=== PATIENT | female | born 1950 | race Caucasian/White ===

== ENCOUNTER 2016-11-24 11:53 | Emergency (ER) | payer MEDICARE ==
[~2016-11-24] VITALS: Ht 170.2 cm; Wt 85.0 kg
[2016-11-24 11:57] VITALS: BP 106/52; PULSE 85; RESP 27; TEMP 97.7; O2SAT 97
[2016-11-24] MEDS ORDERED: OMEP20TA PO (12:12)
[2016-11-24] MEDS ORDERED: LOSA50TA PO (12:12)
[2016-11-24] MEDS ORDERED: ATOR40TA16 PO (12:12)
[2016-11-24] MEDS ORDERED: AMLO5TAB2 PO (12:13)
[2016-11-24] MEDS ORDERED: SODIUM CHLORIDE 0.9% FLUSH 10 ML FLUSH IVF PRN (12:15)
--- NOTE | 2016-11-24 12:17 | PD ---
HPI Chief Complaint: Syncope/Near-Syncope Time Seen by Provider: 12:01 Travel History International Travel<30 days: No Contact w/Intl Traveler<30days: No Traveled to known affect area: No History of Present Illness HPI This is a 66-year-old female who presents to the emergency department with syncope. The patient reports that she was out fishing with her son and when she got in the heat she started to feel lightheaded and dizzy and passed out 3 or 4 times. Her son provides most history. He says this is happened many times before. He says she's had a full workup including an ultrasound of her neck which was unremarkable and they can never find a reason. He says it always happens when she goes in the heat and he thinks she gets a little bit anxious and she panicks when she gets in the heat and this contributes to her symptoms. The patient denies any chest pain, trouble breathing and denies any recent diarrhea, nausea or vomiting or dark stools. PFSH Past Medical History High Cholesterol: Yes Diminished Hearing: No GERD: Yes Hypertension: Yes Influenza Vaccination: Yes Past Surgical History Appendectomy: Yes Cholecystectomy: Yes Social History Alcohol Use: No Tobacco Use: Yes (04/01 PPD) Substance Use: No Allergies-Medications (Allergen,Severity, Reaction): Coded Allergies: No Known Allergies (Unverified , 11/24/16) Reported Meds & Prescriptions Reported Meds & Active Scripts Active Reported Amlodipine (Amlodipine Besylate) 5 Mg Tab 5 Mg PO DAILY Losartan (Losartan Potassium) 50 Mg Tab 50 Mg PO DAILY Atorvastatin (Atorvastatin Calcium) 40 Mg Tab 40 Mg PO HS Omeprazole 20 Mg Tab 20 Mg PO BID Review of Systems Except as stated in HPI: all other systems reviewed are Neg Physical Exam Narrative GENERAL: Uncomfortable appearing, moaning, pale SKIN: Focused skin assessment warm and dry. HEAD: Atraumatic. Normocephalic. EYES: Pupils equal and round. No injection or drainage. ENT: Moist mucous membranes NECK: Trachea midline. CARDIOVASCULAR: Regular rate and rhythm. No murmur appreciated. RESPIRATORY: Clear to auscultation. Breath sounds equal bilaterally. GASTROINTESTINAL: Abdomen soft, non-tender, nondistended. MUSCULOSKELETAL: No obvious deformities. NEUROLOGICAL: Awake and alert. No obvious cranial nerve deficits. Moving all extremities. PSYCHIATRIC: Appropriate mood and affect; insight and judgment normal. Data Data Last Documented VS Vital Signs Date Time Temp Pulse Resp B/P (MAP) Pulse Ox O2 Delivery O2 Flow Rate FiO2 11/24/16 14:21 51 16 119/50 (73) Room Air 11/24/16 11:57 97.7 97 Orders Orders Electrocardiogram (11/24/16 12:01) Complete Blood Count With Diff (11/24/16 12:01) Comprehensive Metabolic Panel (11/24/16 12:01) Troponin I (11/24/16 12:01) Urinalysis - C+S If Indicated (11/24/16 12:01) Ct Brain W/O Iv Contrast(Rout) (11/24/16 12:01) Ecg Monitoring (11/24/16 12:01) Iv Access Insert/Monitor (11/24/16 12:01) Oximetry (11/24/16 12:01) Sodium Chloride 0.9% Flush (Ns Flush) (11/24/16 12:15) Sodium Chlor 0.9% 1000 Ml Inj (Ns 1000 M (11/24/16 12:30) Sodium Chlor 0.9% 1000 Ml Inj (Ns 1000 M (11/24/16 13:00) Cath For Specimen (11/24/16 13:55) Labs Laboratory Tests Test 11/24/16 12:18 11/24/16 14:05 White Blood Count 7.8 TH/MM3 Red Blood Count 5.31 MIL/MM3 Hemoglobin 15.6 GM/DL Hematocrit 46.6 % Mean Corpuscular Volume 87.8 FL Mean Corpuscular Hemoglobin 29.4 PG Mean Corpuscular Hemoglobin Concent 33.5 % Red Cell Distribution Width 13.3 % Platelet Count 259 TH/MM3 Mean Platelet Volume 8.6 FL Neutrophils (%) (Auto) 58.2 % Lymphocytes (%) (Auto) 31.7 % Monocytes (%) (Auto) 7.8 % Eosinophils (%) (Auto) 1.5 % Basophils (%) (Auto) 0.8 % Neutrophils # (Auto) 4.6 TH/MM3 Lymphocytes # (Auto) 2.5 TH/MM3 Monocytes # (Auto) 0.6 TH/MM3 Eosinophils # (Auto) 0.1 TH/MM3 Basophils # (Auto) 0.1 TH/MM3 CBC Comment DIFF FINAL Differential Comment Blood Urea Nitrogen 16 MG/DL Creatinine 1.20 MG/DL Random Glucose 136 MG/DL Total Protein 7.1 GM/DL Albumin 3.5 GM/DL Calcium Level 8.9 MG/DL Alkaline Phosphatase 100 U/L Aspartate Amino Transf (AST/SGOT) 20 U/L Alanine Aminotransferase (ALT/SGPT) 35 U/L Total Bilirubin 0.4 MG/DL Sodium Level 142 MEQ/L Potassium Level 3.6 MEQ/L Chloride Level 108 MEQ/L Carbon Dioxide Level 22.5 MEQ/L Anion Gap 12 MEQ/L Estimat Glomerular Filtration Rate 45 ML/MIN Troponin I LESS THAN 0.02 NG/ML Urine Color YELLOW Urine Turbidity CLEAR Urine pH 6.0 Urine Specific [place] 1.011 Urine Protein TRACE mg/dL Urine Glucose (UA) NEG mg/dL Urine Ketones NEG mg/dL Urine Occult Blood NEG Urine Nitrite NEG Urine Bilirubin NEG Urine Urobilinogen LESS THAN 2.0 MG/DL Urine Leukocyte Esterase TRACE Urine RBC 1 /hpf Urine WBC 8 /hpf Urine Squamous Epithelial Cells <1 /hpf Urine Bacteria RARE /hpf Urine Hyaline Casts 4 /lpf Urine Mucus FEW /lpf Microscopic Urinalysis Comment CULT NOT INDICATED MDM Medical Decision Making Medical Screen Exam Complete: Yes Emergency Medical Condition: Yes Interpretation(s) afebrile, no tachycardia, tachypneic, normotensive hemoconcentration mild renal insufficiency troponin normal urinalysis: 8 wbcs, rare bacteria, trace LE Differential Diagnosis Dehydration, vasovagal syncope, TIA, intracranial hemorrhage, arrhythmia, myocardial infarction Narrative Course This is a 66-year-old female who presents to the emergency department having had an episode where she passed out in the heat. This is happened to her multiple times in the past. From what her son describes it sounds like she may be experiencing panic attacks. She was tachypneic on arrival in the emergency department. She evidently has had a full outpatient workup for syncope in the past. She is placed in a monitor and an IV was established. CT of the head was reassuring. She was given 2 L of IV fluid. Labs demonstrate some hemoconcentration and some mild renal insufficiency consistent with dehydration. She does have a mild urinary tract infection. I don't think she requires admission for syncope at this time. I think she can safely be followed up with her primary care physician as an outpatient and she feels much better and would like to go home. Diagnosis Primary Impression: Syncope Qualified Codes: R55 - Syncope and collapse Patient Instructions: General Instructions Additional Instructions: If you develop severe chest pain, shortness of breath, sweating, lightheadedness , dizziness or difficulty breathing return to the emergency department immediately. Followup with your primary care physician in 2-3 days if your symptoms are not resolved. Med/Other Pt SpecificInfo: Prescription(s) given Scripts Nitrofurantoin Monohydrate Macrocrystals (Macrobid) 100 Mg Cap 100 MG PO BID for Infection for 7 Days, CAP 0 Refills Prov: Alie Phillips MD 11/24/16 Disposition: 01 DISCHARGE HOME Condition: Stable Alie Phillips MD Nov 24, 2016 12:17
[2016-11-24] MEDS ORDERED: SODIUM CHLOR 0.9% 1000 ML INJ 1,000 ML IV ONE (12:30)
[2016-11-24 12:35] LABS: AUTOMATED NEUTROPHIL # 4.6 TH/MM3 (1.8-7.7); BASOPHIL # 0.1 TH/MM3 (0-0.2); BASOPHIL % 0.8 % (0.0-2.0); EOSINOPHIL # 0.1 TH/MM3 (0-0.4); EOSINOPHIL % 1.5 % (0.0-4.0); HEMATOCRIT 46.6 % (35.0-46.0); HEMO FLAGS DIFF FINAL; LYMPH % 31.7 % (9.0-44.0); LYMPHOCYTE # 2.5 TH/MM3 (1.0-4.8); MEAN CELL VOLUME 87.8 FL (80.0-100.0); MEAN CORPUSCULAR HEMOGLOBIN 29.4 PG (27.0-34.0); MEAN CORPUSCULAR HGB CONC 33.5 % (32.0-36.0); MONO % 7.8 % (0.0-8.0); NEUT % 58.2 % (16.0-70.0); PLATELET COUNT 259 TH/MM3 (150-450); RED BLOOD COUNT 5.31 MIL/MM3 (4.00-5.30); RED CELL DISTRIBUTION WIDTH 13.3 % (11.6-17.2); WHITE BLOOD COUNT 7.8 TH/MM3 (4.0-11.0)
[2016-11-24 12:52] LABS: ANION GAP 12 MEQ/L (5-15); AST (GOT) 20 U/L (15-37); BICARBONATE 22.5 MEQ/L (21.0-32.0); BLOOD UREA NITROGEN 16 MG/DL (7-18); CHLORIDE 108 MEQ/L (98-107); GLOMERULAR FILTRATION RATE 45 ML/MIN (>89); POTASSIUM 3.6 MEQ/L (3.5-5.1); SODIUM (NA) 142 MEQ/L (136-145)
--- NOTE | 2016-11-24 12:59 | RADRPT ---
EXAM DATE/TIME: 11/24/2016 12:50 [facility] COMPARISON: No previous studies available for comparison. INDICATIONS : Syncope, general weakness and nausea today. RADIATION DOSE: 33.89 CTDIvol (mGy) MEDICAL HISTORY : Hypertension. SURGICAL HISTORY : Cholecystectomy. Appendectomy. ENCOUNTER: Initial ACUITY: 1 day PAIN SCALE: 0/10 LOCATION: Bilateral head TECHNIQUE: Multiple contiguous axial images were obtained of the head. Using automated exposure control and adj ustment of the mA and/or kV according to patient size, radiation dose was kept as low as reasonably a chievable to obtain optimal diagnostic quality images. DICOM format image data is available electro nically for review and comparison. FINDINGS: CEREBRUM: The ventricles are normal for age. No evidence of midline shift, mass lesion, hemorrhage or acute in farction. No extra-axial fluid collections are seen. POSTERIOR FOSSA: The cerebellum and brainstem are intact. The 4th ventricle is midline. The cerebellopontine angle i s unremarkable. EXTRACRANIAL: The visualized portion of the orbits is intact. SKULL: The calvaria is intact. No evidence of skull fracture. CONCLUSION: Normal examination for a patient of this age. Prashanth Choi MD on November 24, 2016 at 12:57 Board Certified Radiologist. This report was verified electronically.
[2016-11-24 13:00] LABS: ALKALINE PHOSPHATASE 100 U/L (45-117); ALT (GPT) 35 U/L (10-53); TOTAL BILIRUBIN ADULT 0.4 MG/DL (0.2-1.0)
[2016-11-24] MEDS ORDERED: SODIUM CHLOR 0.9% 1000 ML INJ 1,000 ML IV SCH (13:00)
[2016-11-24 14:19] LABS: BACTERIA, URINE RARE /hpf; BLOOD, URINE NEG (NEG); COMMENT (UR) CULT NOT INDICATED; CULTURE IF INDICATED CULT NOT INDICATED; GLUCOSE,URINE NEG (NEG); HYALINE CAST, URINE 4 /lpf (RARE); KETONE, URINE NEG (NEG); MUCUS URINE FEW /lpf (OCC); NITRITE,URINE NEG (NEG); SQUAMOUS EPITHELIAL CELL URINE <1 /hpf (0-5); URINE COLOR YELLOW (YELLW/STRAW)
[2016-11-24 14:21] VITALS: BP 119/50; PULSE 51; RESP 16
[2016-11-24] MEDS ORDERED: MACR100C2 PO (14:37)
[2016-11-24 15:21] VITALS: BP 124/59; PULSE 70; RESP 18; O2SAT 98
--- NOTE | 2016-11-25 14:25 | EKG ---
Date Performed: 11/24/2016 Time Performed: 11:58:26 PTAGE: 66 years EKG: Sinus rhythm POSSIBLE LEFT ATRIAL ENLARGEMENT NONSPECIFIC T-WAVE ABNORMALITY BORDERLINE ECG NO PREVIOUS TRACING DOCTOR: Jb Maria Interpretating Date/Time 11/25/2016 14:24:11
== END 2016-11-24 15:22 | disposition home or self-care (01) ==
LOC: NEPC 11:53
DX: R55 Syncope and collapse (principal); I10 Essential (primary) hypertension; E78.00 Pure hypercholesterolemia, unspecified; K21.9 Gastro-esophageal reflux disease without esophagitis; F17.200 Nicotine dependence, unspecified, uncomplicated
CPT/HCPCS: 70450; 80053; 81001; 84484; 85025; 93005; 96360; 96361; 99285; J7030

== ENCOUNTER 2017-07-27 13:26 | Emergency (ER) | payer MEDICARE ==
[~2017-07-27] VITALS: Ht 170.2 cm; Wt 82.0 kg
[~2017-07-27 13:26] MED LIST: AMLO5TAB2 PO; ATOR40TA16 PO; LOSA50TA PO; MACR100C2 PO; OMEP20TA93 PO
[2017-07-27 13:32] VITALS: BP 118/54; PULSE 58; RESP 16; TEMP 95.1; O2SAT 96
[2017-07-27] MEDS ORDERED: SODIUM CHLOR 0.9% 1000 ML INJ 1,000 ML IV ONE (13:45)
--- NOTE | 2017-07-27 13:52 | RADRPT ---
EXAM DATE/TIME: 07/27/2017 13:40 [facility] COMPARISON: No previous studies available for comparison. INDICATIONS : Syncope MEDICAL HISTORY : Hypertension. SURGICAL HISTORY : Cholecystectomy. Appendectomy ENCOUNTER: Initial ACUITY: 1 day PAIN SCORE: 0/10 LOCATION: chest FINDINGS: Calcified granuloma left upper lobe. Borderline cardiomegaly. Lungs are clear. Osseous structures are intact. Aortic calcification. CONCLUSION: No acute disease. Karel Boateng MD on July 27, 2017 at 13:48 Board Certified Radiologist. This report was verified electronically.
--- NOTE | 2017-07-27 13:53 | PD ---
HPI Chief Complaint: Syncope/Near-Syncope Time Seen by Provider: 13:30 Travel History International Travel<30 days: No Contact w/Intl Traveler<30days: No Traveled to known affect area: No History of Present Illness HPI 67-year-old female that presents to the ED for evaluation of syncope. Patient has a history of syncopal episodes in the past. She states that today she had a syncopal episode but she does not remember what happened. Per patient she was doing laundry and she started feeling very sweaty and hot and then that is all she remembers. She does not know she hit her head. She denies any urinary or bowel movement issues. She was found to be diaphoretic and per ambulance report initially no blood pressure could be found. Patient was given 500 bolus of saline and the blood pressure came to the 70 systolic and she came back to more normal mentation. Currently she is able to answer some questions appropriately but she does appear to be somewhat somnolent. She denies taking any blood thinners. She denies any blurred vision or double vision. No pain of any kind. No history of heart disease. She does have a history of high blood pressure and took her blood pressure medications today. She states that she has been eating today. She states that she has had episodes like this in the past. Syncopal episode was not witnessed. She denies any history of seizures. She follows with Dr. Hoffman for primary care doctor. [facility] Past Medical History High Cholesterol: Yes Diminished Hearing: No GERD: Yes Hypertension: Yes Past Surgical History Appendectomy: Yes Cholecystectomy: Yes Social History Alcohol Use: No Tobacco Use: Yes (1/2 PPD) Substance Use: No Allergies-Medications (Allergen,Severity, Reaction): Coded Allergies: No Known Allergies (Unverified Adverse Reaction, Unknown, 07/27/17) Reported Meds & Prescriptions Reported Meds & Active Scripts Active Reported Amlodipine (Amlodipine Besylate) 5 Mg Tab 5 Mg PO DAILY Losartan (Losartan Potassium) 50 Mg Tab 50 Mg PO DAILY Atorvastatin (Atorvastatin Calcium) 40 Mg Tab 40 Mg PO HS Omeprazole 20 Mg Tab 20 Mg PO BID Review of Systems ROS Limitations: Altered Mental Status Except as stated in HPI: all other systems reviewed are Neg Physical Exam Exam Limitations: Altered Mental Status Narrative GENERAL: SKIN: Warm and dry. HEAD: Atraumatic. Normocephalic. EYES: Pupils equal and round. No scleral icterus. No injection or drainage. ENT: No nasal bleeding or discharge. Mucous membranes pink and moist. Tongue is midline. No uvula deviation. NECK: Trachea midline. No JVD. CARDIOVASCULAR: Regular rate and rhythm. No murmurs, S3, S4. RESPIRATORY: No accessory muscle use. Clear to auscultation. Breath sounds equal bilaterally. GASTROINTESTINAL: Abdomen soft, non-tender, nondistended. Hepatic and splenic margins not palpable. MUSCULOSKELETAL: Extremities without clubbing, cyanosis, or edema. No obvious deformities. Full range of motion of the upper and lower extremities bilaterally. 2+ pulses bilaterally. NEUROLOGICAL: Awake and alert. No obvious cranial nerve deficits. Motor grossly within normal limits. Five out of 5 muscle strength in the arms and legs. Normal speech. PSYCHIATRIC: Appropriate mood and affect; insight and judgment normal. Data Data Last Documented VS Vital Signs Date Time Temp Pulse Resp B/P (MAP) Pulse Ox O2 Delivery O2 Flow Rate FiO2 07/27/17 14:16 66 16 118/59 (78) 98 Room Air 07/27/17 13:32 95.1 Orders Orders Electrocardiogram (07/27/17 13:39) Complete Blood Count With Diff (07/27/17 13:39) Comprehensive Metabolic Panel (07/27/17 13:39) Ckmb (Isoenzyme) Profile (07/27/17 13:39) Troponin I (07/27/17 13:39) Prothrombin Time / Inr (Pt) (07/27/17 13:39) Act Partial Throm Time (Ptt) (07/27/17 13:39) Urinalysis - C+S If Indicated (07/27/17 13:39) Magnesium (Mg) (07/27/17 13:39) Thyroid Stimulating Hormone (07/27/17 13:39) Chest, Single Ap (07/27/17 13:39) Ct Brain W/O Iv Contrast(Rout) (07/27/17 13:39) Iv Access Insert/Monitor (07/27/17 13:39) Ecg Monitoring (07/27/17 13:39) Oximetry (07/27/17 13:39) Orthostatic Vital Signs (07/27/17 13:39) Sodium Chlor 0.9% 1000 Ml Inj (Ns 1000 M (07/27/17 13:45) CKMB (07/27/17 13:40) CKMB% (07/27/17 13:40) Ed Discharge Order (07/27/17 15:53) Labs Laboratory Tests Test 07/27/17 13:40 White Blood Count 9.2 TH/MM3 Red Blood Count 4.77 MIL/MM3 Hemoglobin 14.4 GM/DL Hematocrit 42.0 % Mean Corpuscular Volume 88.0 FL Mean Corpuscular Hemoglobin 30.2 PG Mean Corpuscular Hemoglobin Concent 34.3 % Red Cell Distribution Width 13.0 % Platelet Count 197 TH/MM3 Mean Platelet Volume 8.8 FL Neutrophils (%) (Auto) 87.3 % Lymphocytes (%) (Auto) 8.4 % Monocytes (%) (Auto) 3.7 % Eosinophils (%) (Auto) 0.2 % Basophils (%) (Auto) 0.4 % Neutrophils # (Auto) 8.1 TH/MM3 Lymphocytes # (Auto) 0.8 TH/MM3 Monocytes # (Auto) 0.3 TH/MM3 Eosinophils # (Auto) 0.0 TH/MM3 Basophils # (Auto) 0.0 TH/MM3 CBC Comment DIFF FINAL Differential Comment Prothrombin Time 10.9 SEC Prothromb Time International Ratio 1.1 RATIO Activated Partial Thromboplast Time 25.2 SEC Blood Urea Nitrogen 17 MG/DL Creatinine 1.19 MG/DL Random Glucose 115 MG/DL Total Protein 6.6 GM/DL Albumin 3.4 GM/DL Calcium Level 8.7 MG/DL Magnesium Level 2.0 MG/DL Alkaline Phosphatase 99 U/L Aspartate Amino Transf (AST/SGOT) 34 U/L Alanine Aminotransferase (ALT/SGPT) 44 U/L Total Bilirubin 0.5 MG/DL Sodium Level 142 MEQ/L Potassium Level 3.9 MEQ/L Chloride Level 109 MEQ/L Carbon Dioxide Level 24.0 MEQ/L Anion Gap 9 MEQ/L Estimat Glomerular Filtration Rate 45 ML/MIN Total Creatine Kinase 239 U/L Creatine Kinase MB 3.4 NG/ML Creatine Kinase MB % 1.4 % Troponin I LESS THAN 0.02 NG/ML Thyroid Stimulating Hormone 3rd Gen 3.580 uIU/ML MDM Medical Decision Making Medical Screen Exam Complete: Yes Emergency Medical Condition: Yes Medical Record Reviewed: Yes Interpretation(s) CBC & BMP Diagram 07/27/17 13:40 Total Protein 6.6, Albumin 3.4, Calcium Level 8.7, Magnesium Level 2.0, Alkaline Phosphatase 99, Aspartate Amino Transf (AST/SGOT) 34, Alanine Aminotransferase (ALT/SGPT) 44, Total Bilirubin 0.5 troponin and CKMB negative EKG shows sinus rhythm with no sign of acute ischemia or arrhythmia read by me and attending. Last Impressions Head CT 07/27/[id number] Signed Impressions: Service Date/Time: Thursday, July 27, 2017 14:13 - CONCLUSION: 1. Small foci of air within the soft tissues of the left scalp, left infraorbital region, left camera repairman space and around the cavernous sinus. The source of the air is not seen. Presumably there is a laceration. 2. No intracranial abnormality other than the small foci of air around the cavernous sinuses is seen. Santiago Potts MD Chest X-Ray [id number]/27/[id number] Signed Impressions: Service Date/Time: Thursday, July 27, 2017 13:40 - CONCLUSION: No acute disease. Karel Boateng MD Differential Diagnosis Syncope versus presyncope versus dehydration versus hypotension versus CVA versus ACS versus electron normality versus kidney failure versus cardiac syncope Narrative Course 67-year-old female that presents to the ED for evaluation of syncope. Patient was properly examined and was found to have signs and symptoms consistent appears to be syncope. Unclear telemetry at this time would likely from the hypotension. Labs and imaging order. Patient was given IV fluids here. Labs and imaging showed no sign of acute disease. patient was given fluids with improvement of BP and feels back to baseline. Desirious to go home. Patient has had multiple workups in the past for syncope and states that she will prefer to go home rather than do another workup. Per patient she has an appointment on Friday with her PCP and feels comfortable going with him. He has family at bedside and agree with this plan and prefer her to go home. I think at this time this is reasonable. Orthostatics were negative here. This time patient was told to follow with PCP. See ED if worsening symptoms. My attending Dr. Marc evaluated the patient with me and agrees with discharge. Diagnosis Primary Impression: Syncope, vasovagal Patient Instructions: General Instructions Additional Instructions: Drink plenty of fluids. Follow-up with your doctor. See ED if worsening symptoms. Med/Other Pt SpecificInfo: No Change to Meds Disposition: DISCHARGE HOME Condition: Stable King Jaffe Jul 27, 2017 13:53
[2017-07-27 14:10] LABS: AUTOMATED NEUTROPHIL # 8.1 TH/MM3 (1.8-7.7); BASOPHIL % 0.4 % (0.0-2.0); EOSINOPHIL % 0.2 % (0.0-4.0); HEMOGLOBIN 14.4 GM/DL (11.6-15.3); LYMPH % 8.4 % (9.0-44.0); LYMPHOCYTE # 0.8 TH/MM3 (1.0-4.8); MEAN CORPUSCULAR HEMOGLOBIN 30.2 PG (27.0-34.0); MEAN CORPUSCULAR HGB CONC 34.3 % (32.0-36.0); MEAN PLATELET VOLUME 8.8 FL (7.0-11.0); MONO % 3.7 % (0.0-8.0); MONOCYTE # 0.3 TH/MM3 (0-0.9); NEUT % 87.3 % (16.0-70.0); PLATELET COUNT 197 TH/MM3 (150-450); RED BLOOD COUNT 4.77 MIL/MM3 (4.00-5.30); WHITE BLOOD COUNT 9.2 TH/MM3 (4.0-11.0)
[2017-07-27 14:11] LABS: INTERNATIONAL NORMALIZED RATIO 1.1 RATIO; PROTHROMBIN TIME - PATIENT 10.9 SEC (9.8-11.6)
--- NOTE | 2017-07-27 14:15 | PD ---
Physical Exam Date Seen by Provider: Jul 27, 2017 Narrative This patient presents status post a syncopal episode at home. She has a history of previous syncopal events. She was hypotensive on the arrival of [facility]. Data Data Last Documented VS Vital Signs Date Time Temp Pulse Resp B/P (MAP) Pulse Ox O2 Delivery O2 Flow Rate FiO2 07/27/17 13:32 95.1 58 16 118/54 (75) 96 Orders Orders Electrocardiogram (07/27/17 13:39) Complete Blood Count With Diff (07/27/17 13:39) Comprehensive Metabolic Panel (07/27/17 13:39) Ckmb (Isoenzyme) Profile (07/27/17 13:39) Troponin I (07/27/17 13:39) Prothrombin Time / Inr (Pt) (07/27/17 13:39) Act Partial Throm Time (Ptt) (07/27/17 13:39) Urinalysis - C+S If Indicated (07/27/17 13:39) Magnesium (Mg) (07/27/17 13:39) Thyroid Stimulating Hormone (07/27/17 13:39) Chest, Single Ap (07/27/17 13:39) Ct Brain W/O Iv Contrast(Rout) (07/27/17 13:39) Iv Access Insert/Monitor (07/27/17 13:39) Ecg Monitoring (07/27/17 13:39) Oximetry (07/27/17 13:39) Orthostatic Vital Signs (07/27/17 13:39) Sodium Chlor 0.9% 1000 Ml Inj (Ns 1000 M (07/27/17 13:45) Labs Laboratory Tests Test 07/27/17 13:40 White Blood Count 9.2 TH/MM3 Red Blood Count 4.77 MIL/MM3 Hemoglobin 14.4 GM/DL Hematocrit 42.0 % Mean Corpuscular Volume 88.0 FL Mean Corpuscular Hemoglobin 30.2 PG Mean Corpuscular Hemoglobin Concent 34.3 % Red Cell Distribution Width 13.0 % Platelet Count 197 TH/MM3 Mean Platelet Volume 8.8 FL Neutrophils (%) (Auto) 87.3 % Lymphocytes (%) (Auto) 8.4 % Monocytes (%) (Auto) 3.7 % Eosinophils (%) (Auto) 0.2 % Basophils (%) (Auto) 0.4 % Neutrophils # (Auto) 8.1 TH/MM3 Lymphocytes # (Auto) 0.8 TH/MM3 Monocytes # (Auto) 0.3 TH/MM3 Eosinophils # (Auto) 0.0 TH/MM3 Basophils # (Auto) 0.0 TH/MM3 CBC Comment DIFF FINAL Differential Comment Prothrombin Time 10.9 SEC Prothromb Time International Ratio 1.1 RATIO Activated Partial Thromboplast Time 25.[address] [facility] Supervised Visit with WESLY: Yes Interpretation(s) Her EKG shows a normal sinus rhythm with no acute ischemic changes Narrative Course I, Dr. Marc, have reviewed the advance practice practitioner's documentation and am in agreement, met with the patient face to face, made the diagnosis, and the medical decision making was done by me. *My assessment and Findings: Patient is currently awake and alert and in no acute distress. See Bibiana Darling note for lab and radiology results, final diagnosis and disposition Tami Marc MD Jul 27, 2017 14:15
[2017-07-27 14:16] VITALS: BP 118/59; PULSE 66; RESP 16; O2SAT 98
[2017-07-27 14:29] LABS: ALKALINE PHOSPHATASE 99 U/L (45-117); ALT (GPT) 44 U/L (10-53); TOTAL BILIRUBIN ADULT 0.5 MG/DL (0.2-1.0); TOTAL PROTEIN 6.6 GM/DL (6.4-8.2); TROPONIN I LESS THAN 0.02 NG/ML (0.02-0.05)
[2017-07-27 14:34] LABS: ALBUMIN 3.4 GM/DL (3.4-5.0); AST (GOT) 34 U/L (15-37); BLOOD UREA NITROGEN 17 MG/DL (7-18); CALCIUM 8.7 MG/DL (8.5-10.1); CHLORIDE 109 MEQ/L (98-107); CREATININE 1.19 MG/DL (0.50-1.00); GLOMERULAR FILTRATION RATE 45 ML/MIN (>89); GLUCOSE,RANDOM 115 MG/DL (74-106); SODIUM (NA) 142 MEQ/L (136-145)
--- NOTE | 2017-07-27 15:14 | RADRPT ---
EXAM DATE/TIME: 07/27/2017 14:13 [facility] COMPARISON: CT BRAIN W/O CONTRAST, November 24, 2016, 12:50. INDICATIONS : Syncopal episode today. RADIATION DOSE: 56.35 CTDIvol (mGy) MEDICAL HISTORY : Hypertension. SURGICAL HISTORY : None. ENCOUNTER: Initial ACUITY: 1 day PAIN SCALE: 0/10 LOCATION: cranial TECHNIQUE: Multiple contiguous axial images were obtained of the head. Using automated exposure control and adj ustment of the mA and/or kV according to patient size, radiation dose was kept as low as reasonably a chievable to obtain optimal diagnostic quality images. DICOM format image data is available electro nically for review and comparison. FINDINGS: CEREBRUM: The ventricles are normal for age. No evidence of midline shift, mass lesion, hemorrhage or acute in farction. No extra-axial fluid collections are seen. POSTERIOR FOSSA: The cerebellum and brainstem are intact. The 4th ventricle is midline. The cerebellopontine angle i s unremarkable. EXTRACRANIAL: There are small foci of air seen in the left scalp, left infraorbital region, left mat sewer space a nd around the cavernous sinus regions. The visualized portion of the orbits is intact. SKULL: The calvaria is intact. No evidence of skull fracture. CONCLUSION: 1. Small foci of air within the soft tissues of the left scalp, left infraorbital region, left mastic ator space and around the cavernous sinus. The source of the air is not seen. Presumably there is a l aceration. 2. No intracranial abnormality other than the small foci of air around the cavernous sinuses is seen. Santiago Potts MD on July 27, 2017 at 15:08 Board Certified Radiologist. This report was verified electronically.
[2017-07-27 15:54] VITALS: BP 120/61; PULSE 55; RESP 16; O2SAT 99
[2017-07-27 15:55] VITALS: BP_SYST 115; BP_SYST 120; BP_SYST 145; BP_DIAS 57; BP_DIAS 79; RESP 16
[2017-07-27 15:56] VITALS: TEMP 97.6
[2017-07-27 16:17] LABS: BILIRUBIN, URINE NEG (NEG); BLOOD, URINE NEG (NEG); GLUCOSE,URINE NEG (NEG); HYALINE CAST, URINE 3 /lpf (RARE); KETONE, URINE TRACE mg/dL (NEG); MUCUS URINE FEW /lpf (OCC); NITRITE,URINE NEG (NEG); SQUAMOUS EPITHELIAL CELL URINE <1 /hpf (0-5); URINE COLOR LIGHT-YELLOW (YELLW/STRAW); URINE LEUKOCYTE ESTERASE NEG (NEG)
--- NOTE | 2017-07-28 21:24 | EKG ---
Date Performed: 07/27/2017 Time Performed: 13:56:16 PTAGE: 67 years EKG: SINUS BRADYCARDIA POSSIBLE LEFT ATRIAL ENLARGEMENT BORDERLINE ECG INTERPRETATION BASED ON A DEFAULT AGE OF 41 YEARS NO PREVIOUS TRACING DOCTOR: Gerard Darnell Interpretating Date/Time 07/28/2017 21:22:28
== END 2017-07-27 16:54 | disposition home or self-care (01) ==
LOC: NEPE 13:26
DX: R55 Syncope and collapse (principal); R00.1 Bradycardia, unspecified; E78.00 Pure hypercholesterolemia, unspecified; K21.9 Gastro-esophageal reflux disease without esophagitis; I10 Essential (primary) hypertension; F17.200 Nicotine dependence, unspecified, uncomplicated; Z79.899 Other long term (current) drug therapy
CPT/HCPCS: 70450; 71045; 80053; 81001; 82550; 82552; 83735; 84443; 84484; 85025; 85610; 85730; 93005; 96360; 99285; J7030